=== PATIENT | male | born 1985 | race American Indian/Alaskan Native ===

== ENCOUNTER 2018-05-30 09:26 | Emergency (ER) | payer SELFPAY ==
[2018-05-30 09:32] VITALS: BP 130/76
[2018-05-30] MEDS ORDERED: MOTRIN PO ONE (09:43)
[2018-05-30] MEDS ORDERED: NORCO 5/325 PO ONE (09:43)
--- NOTE | 2018-05-30 09:59 | Emergency Department Report ---
ED Lower Extremity HPI - General Chief Complaint: Extremity Injury, Lower Stated Complaint: LEFT ANKLE PAIN Time Seen by Provider: 05/30/18 09:39 Source: patient Mode of arrival: Wheelchair Limitations: No Limitations - History of Present Illness Initial Comments: 32-year-old male with left ankle injury after stepping in a hole. Patient with pain and swelling on left side unable bear weight. Complaint: ankle injury -: This morning Injury: Ankle: Left Type of Injury: unknown Severity: moderate Improves With: immobilization Worsens With: weight bearing, movement, palpation Context: fall Associated Symptoms: swelling, unable to bear weight. denies: numbness, tingling - Related Data Previous Rx's Medication Instructions Recorded Last Taken Type Cyclobenzaprine HCl [FLEXERIL] 10 mg PO TID PRN #15 tablet 06/26/13 Unknown Rx Hydrocodone Bit/Acetaminophen 1 - 2 each PO Q4-6H PRN #20 tablet 06/26/13 Unknown Rx [Lortab 5-500 Tablet] Ibuprofen [Motrin 800 MG tab] 800 mg PO TID PRN #20 tablet 06/26/13 Unknown Rx HYDROcodone/APAP 5-325 [[place] 1 each PO Q6HR PRN #10 tablet 05/30/18 Unknown Rx 5/325] Ibuprofen 800 mg PO Q6HR PRN #30 tablet 05/30/18 Unknown Rx Allergies Allergy/AdvReac Type Severity Reaction Status Date / Time No Known Allergies Allergy Unverified 06/26/13 05:02 ED Review of Systems ROS: Stated complaint: LEFT ANKLE PAIN Other details as noted in HPI Comment: All other systems reviewed and negative Musculoskeletal: as per HPI, joint swelling, arthralgia Neurological: denies: numbness, paresthesias ED Past Medical Hx - Past Medical History Previous Medical History?: No - Surgical History Past Surgical History?: No - Social History Smoking Status: Current Every Day Smoker Substance Use Type: None - Medications Home Medications: Home Medications Medication Instructions Recorded Confirmed Last Taken Type Cyclobenzaprine HCl [FLEXERIL] 10 mg PO TID PRN #15 tablet 06/26/13 Unknown Rx Hydrocodone Bit/Acetaminophen 1 - 2 each PO Q4-6H PRN #20 tablet 06/26/13 Unknown Rx [Lortab 5-500 Tablet] Ibuprofen [Motrin 800 MG tab] 800 mg PO TID PRN #20 tablet 06/26/13 Unknown Rx HYDROcodone/APAP 5-325 [[place] 1 each PO Q6HR PRN #10 tablet 05/30/18 Unknown Rx 5/325] Ibuprofen 800 mg PO Q6HR PRN #30 tablet 05/30/18 Unknown Rx ED Physical Exam - General Limitations: No Limitations General appearance: alert, in no apparent distress - Head Head exam: Present: atraumatic, normocephalic - Eye Eye exam: Present: normal appearance - ENT ENT exam: Present: mucous membranes moist - Neck Neck exam: Present: normal inspection - Respiratory Respiratory exam: Present: normal lung sounds bilaterally. Absent: respiratory distress - Cardiovascular Cardiovascular Exam: Present: normal rhythm, tachycardia - Extremities Exam Extremities exam: Present: other (swelling to left ankle, worse on lateral aspect; tenderness to left ankle, worse laterally; painful ROM; able to move toes; 2+ DP pulse present; cap refill nml; sensation intact) - Neurological Exam Neurological exam: Present: alert, oriented X3. Absent: motor sensory deficit - Skin Skin exam: Present: warm, dry, intact, normal color ED Course Vital Signs 05/30/18 05/30/18 05/30/18 09:29 09:52 10:52 Temperature 98.6 F Pulse Rate 105 H Respiratory 18 17 18 Rate Blood Pressure 130/76 O2 Sat by Pulse 100 Oximetry ED Lower Extremity MDM - Radiology Data Radiology results: report reviewed, image reviewed LEFT ANKLE, 3 views: History: Injury, pain. Severe soft tissue swelling and large joint effusion is identified. A subtle nondisplaced fracture is identified in the distal tip of the fibula approximately 1 cm distal to the ankle joint. There is also a nondisplaced chip fracture involving the postero-lateral corner of the talar dome. This is only identified on the oblique image. The distal tibia is intact. IMPRESSION: Distal fibular fracture. Talar dome fracture. Severe soft tissue swelling and large joint effusion. Transcribed By: TTR Dictated By: RICARDO MARIE JR, MD Electronically Authenticated By: RICARDO MARIE JR, MD Signed Date/Time: 05/30/18 1029 - Medical Decision Making 37-year-old male status post left ankle injury after stepping in a hole. Patient has sustained left distal fibular and dome of talus fractures. Splint placed. Advised to follow up with orthopedic surgeon. Prescription for pain meds given. - Differential Diagnosis fracture, sprain Critical care attestation.: If time is entered above; I have spent that time in minutes in the direct care of this critically ill patient, excluding procedure time. ED Disposition Clinical Impression: Fracture of fibula, distal, left, closed, Fracture of talus of left ankle, closed Disposition: TO HOME OR SELFCARE Is pt being admited?: No Condition: Stable Instructions: Ankle Fracture (ED) Prescriptions: HYDROcodone/APAP 5-325 [[place] 5/325] 1 each PO Q6HR PRN #10 tablet PRN Reason: Pain Ibuprofen 800 mg PO Q6HR PRN #30 tablet PRN Reason: pain Referrals: ANASTASIA MUKHERJEE MD [Staff Physician] - 3-5 Days Time of Disposition: 10:48
--- NOTE | 2018-05-30 10:30 | XRay Report ---
LEFT ANKLE, 3 views: History: Injury, pain. Severe soft tissue swelling and large joint effusion is identified. A subtle nondisplaced fracture is identified in the distal tip of the fibula approximately 1 cm distal to the ankle joint. There is also a nondisplaced chip fracture involving the postero-lateral corner of the talar dome. This is only identified on the oblique image. The distal tibia is intact. IMPRESSION: Distal fibular fracture. Talar dome fracture. Severe soft tissue swelling and large joint effusion.
== END 2018-05-30 12:18 | disposition home or self-care (01) ==
LOC: ED 09:26
DX: S92.145A Nondisplaced dome fracture of left talus, initial encounter for closed fracture (principal); S82.402A Unspecified fracture of shaft of left fibula, initial encounter for closed fracture; F17.200 Nicotine dependence, unspecified, uncomplicated; W18.42XA Slipping, tripping and stumbling without falling due to stepping into hole or opening, initial encounter; Y93.89 Activity, other specified; Y92.89 Other specified places as the place of occurrence of the external cause; Y99.8 Other external cause status

== ENCOUNTER 2018-09-24 13:29 | Inpatient (IN) | payer OTHER, SELFPAY ==
[2018-09-24] MEDS ORDERED: NACL 0.9% 1000 ML IV ONE (13:35)
--- NOTE | 2018-09-24 13:35 | Emergency Department Report ---
Blank Doc - Documentation Documentation: This is a 32-year-old male that presents with cough, fever, and chills. Exam: vital signs abnormal with tachy, febrile, and hypotension This initial assessment diagnostic orders/clinical plan/treatment(s) is/are subject to change based on patient's health status, clinical progression and re- assessment by fellow clinical providers in the ED. Further treatment and workup at subsequent clinical providers discretion. Patient/guardians urged not to elope from ED s their condition may be serious if not clinically assessed and managed. Initial orders include: 1-Patient sent to [facility] for further evaluation and treatment 2- code sepsis called 3- landscape gardener notified for patient to be brought back to the ED BARRETT.
[2018-09-24] MEDS ORDERED: TESSALON PERLES PO ONE (13:57)
[2018-09-24 14:03] LABS: Basophils % (Auto) 0.3 % (0.0-1.8); Eosinophils # (Auto) 0.2 K/mm3 (0.0-0.4); Eosinophils % (Auto) 1.1 % (0.0-4.3); Hematocrit 46.3 % (35.5-45.6); Hemoglobin 15.9 gm/dl (11.8-15.2); Lymphocytes # (Auto) 1.7 K/mm3 (1.2-5.4); Lymphocytes % (Auto) 10.8 % (13.4-35.0); Mean Corpuscular HGB Conc 34 % (32-34); Mean Corpuscular Volume 90 fl (84-94); Monocytes # (Auto) 2.1 K/mm3 (0.0-0.8); Monocytes % (Auto) 13.4 % (0.0-7.3); Platelet Count 211 K/mm3 (140-440); Red Blood Count 5.16 M/mm3 (3.65-5.03); Red Cell Distribution Width 13.3 % (13.2-15.2)
[2018-09-24] MEDS ORDERED: TYLENOL PO ONE (14:23)
--- NOTE | 2018-09-24 14:29 | Emergency Department Report ---
HPI - General Chief Complaint: Upper Respiratory Infection Time Seen by Provider: 09/24/18 13:34 - HPI HPI: Room 6 The patient is a 32-year-old male presenting with a chief complaint of shortness of breath and cough. The patient states he's had shortness of breath for the past 3 days. The patient states he's had a cough productive of brown sputum. P atient admits to rhinorrhea. Patient is to nausea vomiting and diarrhea. Complains of chest pain only when he coughs Location: Lungs, chest, see above Duration: 3 days Quality: Soreness Severity: Moderate Modifying factors: [see above] Context: [see above] Mode of transportation: [not driving] ED Past Medical Hx - Past Medical History Previous Medical History?: No - Surgical History Past Surgical History?: No - Family History Family history: no significant - Social History Smoking Status: Unknown if ever smoked Substance Use Type: None (denies illicit drug use) - Medications Home Medications: Home Medications Medication Instructions Recorded Confirmed Last Taken Type Cyclobenzaprine HCl [FLEXERIL] 10 mg PO TID PRN #15 tablet 06/26/13 Unknown Rx Hydrocodone Bit/Acetaminophen 1 - 2 each PO Q4-6H PRN #20 tablet 06/26/13 Unknown Rx [Lortab 5-500 Tablet] Ibuprofen [Motrin 800 MG tab] 800 mg PO TID PRN #20 tablet 06/26/13 Unknown Rx HYDROcodone/APAP 5-325 [[place] 1 each PO Q6HR PRN #10 tablet 05/30/18 Unknown Rx 5/325] Ibuprofen 800 mg PO Q6HR PRN #30 tablet 05/30/18 Unknown Rx ED Review of Systems ROS: Stated complaint: CHEST PAIN Other details as noted in HPI Constitutional: no symptoms reported Eyes: denies: eye pain ENT: other (rhinorrhea) Respiratory: cough, shortness of breath Cardiovascular: chest pain Endocrine: no symptoms reported Gastrointestinal: nausea, vomiting, diarrhea Musculoskeletal: myalgia Neurological: denies: headache Physical Exam - Physical Exam Vital Signs: Vital Signs 09/24/18 09/24/18 09/24/18 13:32 13:36 13:57 Temperature 100.1 F H 100.1 F H 99.9 F H Pulse Rate 121 H 121 H 94 H Respiratory 16 18 25 H Rate Blood Pressure 67/29 Blood Pressure 67/29 147/93 [Right] O2 Sat by Pulse 98 98 98 Oximetry 09/24/18 14:00 Temperature Pulse Rate Respiratory 25 H Rate Blood Pressure Blood Pressure [Right] O2 Sat by Pulse 98 Oximetry Physical Exam: GENERAL: The patient is well-developed well-nourished male lying on stretcher appearing fatigued exhibiting occasional cough. [] HEENT: Normocephalic. Atraumatic. Extraocular motions are intact. NECK: Supple. Trachea midline CHEST/LUNGS: Clear to auscultation. There is no respiratory distress noted. HEART/CARDIOVASCULAR: Regular. There is no tachycardia. There is no gallop rub or murmur. ABDOMEN: Abdomen is soft, nontender. Patient has normal bowel sounds. There is no abdominal distention. SKIN: There is no rash. There is no edema. There is no diaphoresis. NEURO: The patient is awake, alert, and oriented. The patient is cooperative. The patient has normal speech MUSCULOSKELETAL: There is no evidence of acute injury. ED Course Vital Signs 09/24/18 09/24/18 09/24/18 13:32 13:36 13:57 Temperature 100.1 F H 100.1 F H 99.9 F H Pulse Rate 121 H 121 H 94 H Respiratory 16 18 25 H Rate Blood Pressure 67/29 Blood Pressure 67/29 147/93 [Right] O2 Sat by Pulse 98 98 98 Oximetry 09/24/18 14:00 Temperature Pulse Rate Respiratory 25 H Rate Blood Pressure Blood Pressure [Right] O2 Sat by Pulse 98 Oximetry ED Medical Decision Making - Lab Data Result diagrams: 09/24/18 13:53 09/24/18 13:53 - Radiology Data Radiology results: image reviewed (chest x-ray, CT chest) interpreted by me: Chest x-ray-no focal infiltrates, no pneumothorax CT chest (read by myself)-bilateral pneumonia - Differential Diagnosis pneumonia, influenza, sepsis Critical care attestation.: If time is entered above; I have spent that time in minutes in the direct care of this critically ill patient, excluding procedure time. ED Disposition Clinical Impression: Pneumonia, Sepsis, Shortness of breath Disposition: OP ADMIT IP TO THIS HOSP Is pt being admited?: Yes Does the pt Need Aspirin: Yes Condition: Fair Instructions: Bacterial Pneumonia (ED) Time of Disposition: 15:22 (hospitalist paged (Dr Jacobs))
[2018-09-24 14:31] LABS: INR 1.11 (0.87-1.13)
[2018-09-24 14:32] LABS: Partial Thromboplastin Time 29.1 Sec. (24.2-36.6)
[2018-09-24] MEDS: ZITHROMAX 500 MG in NACL 0.9% 250ML 250 ML IV SCH (14:44)
[2018-09-24 14:46] LABS: BUN/Creatinine Ratio 8; Blood Urea Nitrogen 8 mg/dL (9-20); Calcium 8.9 mg/dL (8.4-10.2); Hemolysis Index 173
--- NOTE | 2018-09-24 14:49 | XRay Report ---
FINAL REPORT EXAM: XR CHEST 1V AP HISTORY: sepsis TECHNIQUE: Chest, portable upright PRIORS: None. FINDINGS: The heart size is normal. Mediastinal contours are normal. Pulmonary vasculature is not congested. The lungs are clear. There are no pleural effusion seen. There is no evidence of pneumothorax. IMPRESSION: There is no acute abnormality identified.
[2018-09-24 14:56] LABS: Alanine Aminotransferase 23 units/L (7-56)
[2018-09-24 15:43] LABS: Bilirubin,Urine NEG (Negative); Blood,Urine NEG (Negative); Color,Urine Straw (Yellow); Protein,Urine <15 mg/dL mg/dL (Negative); Urobilinogen,Urine < 2.0 mg/dL (<2.0)
--- NOTE | 2018-09-24 16:12 | Cat Scan Report ---
FINAL REPORT EXAM: CT ANGIO CHEST HISTORY: shortness of breath, productive cough TECHNIQUE: Following IV administration of 100 cc of Omnipaque 350 axial helical imaging was performe d through the chest with sagittal and coronal reformatted images and maximum intensity projection genevieve ges obtained. Comparison: Chest x-ray also performed today FINDINGS: There are areas of pulmonary consolidation in the lower lobes bilaterally most consistent with the ap pearance of pulmonary infiltrate/pneumonia. There is no evidence of pneumothorax or pleural fluid collection. The trachea and bronchi are patent. There are mildly prominent mediastinal lymph nodes that are nonspecific in appearance but are most li cody inflammatory in nature. The thoracic aorta is normal in appearance. The heart is normal size. The visualized portion the upper abdomen is unremarkable. The bony structures are unremarkable IMPRESSION: 1. Bilateral lower lobe pulmonary infiltrates most consistent with pneumonia. Follow-up to resolution is recommended. 2. No evidence of pulmonary artery emboli.
[2018-09-24] MEDS: ROCEPHIN/NS 2 GM/100 ML 2 GM/100 ML BAG IV SCH (16:24)
--- NOTE | 2018-09-24 18:21 | History and Physical Report ---
History of Present Illness Date of examination: 09/24/18 Date of admission: 09/24/18 Chief complaint: Cough and fever 2 days History of present illness: 32-year-old male presenting with a chief complaint of shortness of breath and cough. Had shortness of breath for the past 3 days. The patient states he's had a cough productive of brown sputum. Patient admits to rhinorrhea. Patient has no nausea vomiting and diarrhea. Complains of chest pain only when he cou ghs. Past Medical History Previous Medical History?: No Surgical History Past Surgical History?: No Family History Family history: no significant Social History Smoking Status: Unknown if ever smoked Substance Use Type: None (denies illicit drug use) Medications Home Medications: Home Medications Medication Instructions Recorded Confirmed Last Taken Type Cyclobenzaprine HCl [FLEXERIL] 10 mg PO TID PRN #15 tablet 06/26/13 Unknown Rx Hydrocodone Bit/Acetaminophen 1 - 2 each PO Q4-6H PRN #20 tablet 06/26/13 Unknown Rx [Lortab 5-500 Tablet] Ibuprofen [Motrin 800 MG tab] 800 mg PO TID PRN #20 tablet 06/26/13 Unknown Rx HYDROcodone/APAP 5-325 [[place] 1 each PO Q6HR PRN #10 tablet 05/30/18 Unknown Rx 5/325] Ibuprofen 800 mg PO Q6HR PRN #30 tablet 05/30/18 Unknown Rx Review of Systems ROS: Stated complaint: CHEST PAIN Other details as noted in HPI Constitutional: no symptoms reported Eyes: denies: eye pain ENT: other (rhinorrhea) Respiratory: cough, shortness of breath Cardiovascular: chest pain Endocrine: no symptoms reported Gastrointestinal: nausea, vomiting, diarrhea Musculoskeletal: myalgia Neurological: denies: headache Medications and Allergies Allergies Allergy/AdvReac Type Severity Reaction Status Date / Time No Known Allergies Allergy Unverified 06/26/13 05:02 Home Medications Medication Instructions Recorded Confirmed Last Taken Type No Known Home Medications [No 09/24/18 09/24/18 Unknown History Reported Home Medications] Active Meds: Active Medications Azithromycin 500 mg/ Sodium (Chloride) 250 mls @ 250 mls/hr IV Q24HR YELENA; Protocol Last Admin: 09/24/18 14:44 Dose: 250 mls/hr Documented by: Ceftriaxone Sodium (Rocephin/Ns 2 Gm/100 Ml) 2 gm in 100 mls @ 200 mls/hr IV Q24HR YELENA; Protocol Last Admin: 09/24/18 16:24 Dose: 200 mls/hr Documented by: Exam - Constitutional Vitals: Temp Pulse Resp BP Pulse Ox 99.9 F H 105 H 20 135/68 97 09/24/18 13:57 09/24/18 15:34 09/24/18 15:34 09/24/18 15:34 09/24/18 15:34 General appearance: Present: mild distress, well-nourished - EENT Eyes: Present: PERRL ENT: hearing intact, clear oral mucosa - Neck Neck: Present: supple, normal ROM - Respiratory Respiratory effort: normal Respiratory: bilateral: CTA, rhonchi (Scattered) - Cardiovascular Heart rate: 88 Rhythm: regular Heart Sounds: Present: S1 & S2. Absent: rub, click - Extremities Extremities: no ischemia, pulses intact, pulses symmetrical, No edema Peripheral Pulses: within normal limits - Abdominal General gastrointestinal: Present: soft, non-tender, non-distended, normal bowel sounds Male genitourinary: Present: normal - Rectal Rectal Exam: deferred - Integumentary Integumentary: Present: clear, warm, dry - Musculoskeletal Musculoskeletal: gait normal, strength equal bilaterally - Psychiatric Psychiatric: appropriate mood/affect, intact judgment & insight - Neurologic Neurologic: CNII-XII intact, moves all extremities - Allied Health Allied health notes reviewed: nursing, case management Results - Labs CBC & Chem 7: 09/24/18 13:53 09/24/18 13:53 Labs: Laboratory Last Values WBC 15.7 K/mm3 (4.5-11.0) H 09/24/18 13:53 RBC 5.16 M/mm3 (3.65-5.03) H 09/24/18 13:53 Hgb 15.9 gm/dl (11.8-15.2) H 09/24/18 13:53 Hct 46.3 % (35.5-45.6) H 09/24/18 13:53 MCV 90 fl (84-94) 09/24/18 13:53 MCH 31 pg (28-32) 09/24/18 13:53 MCHC 34 % (32-34) 09/24/18 13:53 RDW 13.3 % (13.2-15.2) 09/24/18 13:53 Plt Count 211 K/mm3 (140-440) 09/24/18 13:53 Lymph % (Auto) 10.8 % (13.4-35.0) L 09/24/18 13:53 [place] % (Auto) 13.4 % (0.0-7.3) H 09/24/18 13:53 Eos % (Auto) 1.1 % (0.0-4.3) 09/24/18 13:53 Baso % (Auto) 0.3 % (0.0-1.8) 09/24/18 13:53 Lymph # 1.7 K/mm3 (1.2-5.4) 09/24/18 13:53 [place] # 2.1 K/mm3 (0.0-0.8) H 09/24/18 13:53 Eos # 0.2 K/mm3 (0.0-0.4) 09/24/18 13:53 Baso # 0.0 K/mm3 (0.0-0.1) 09/24/18 13:53 Seg Neutrophils % 74.4 % (40.0-70.0) H 09/24/18 13:53 Seg Neutrophils # 11.7 K/mm3 (1.8-7.7) H 09/24/18 13:53 PT 15.0 Sec. (12.2-14.9) H 09/24/18 14:03 INR 1.11 (0.87-1.13) 09/24/18 14:03 APTT 29.1 Sec. (24.2-36.6) 09/24/18 14:03 Sodium 129 mmol/L (137-145) L 09/24/18 13:53 Potassium 4.6 mmol/L (3.6-5.0) 09/24/18 13:53 Chloride 92.2 mmol/L (98-107) L 09/24/18 13:53 Carbon Dioxide 20 mmol/L (22-30) L 09/24/18 13:53 Anion Gap 21 mmol/L 09/24/18 13:53 BUN 8 mg/dL (9-20) L 09/24/18 13:53 Creatinine 1.0 mg/dL (0.8-1.5) 09/24/18 13:53 Estimated GFR > 60 ml/min 09/24/18 13:53 BUN/Creatinine Ratio 8 % 09/24/18 13:53 Glucose 116 mg/dL (75-100) H 09/24/18 13:53 Lactic Acid 0.80 mmol/L (0.7-2.0) 09/24/18 16:08 Calcium 8.9 mg/dL (8.4-10.2) 09/24/18 13:53 Total Bilirubin 0.40 mg/dL (0.1-1.2) 09/24/18 13:53 AST 35 units/L (5-40) 09/24/18 13:53 ALT 23 units/L (7-56) 09/24/18 13:53 Alkaline Phosphatase 73 units/L (35-129) 09/24/18 13:53 Total Protein 8.4 g/dL (6.3-8.2) H 09/24/18 13:53 Albumin 4.0 g/dL (3.9-5) 09/24/18 13:53 Albumin/Globulin Ratio 0.9 % 09/24/18 13:53 Urine Color Straw (Yellow) 09/24/18 15:00 Urine Turbidity Clear (Clear) 09/24/18 15:00 Urine pH 6.0 (5.0-7.0) 09/24/18 15:00 Ur Specific [place] 1.003 (1.003-1.030) 09/24/18 15:00 Urine Protein <15 mg/dl mg/dL (Negative) 09/24/18 15:00 Urine Glucose (UA) Neg mg/dL (Negative) 09/24/18 15:00 Urine Ketones Tr mg/dL (Negative) 09/24/18 15:00 Urine Blood Neg (Negative) 09/24/18 15:00 Urine Nitrite Neg (Negative) 09/24/18 15:00 Urine Bilirubin Neg (Negative) 09/24/18 15:00 Urine Urobilinogen < 2.0 mg/dL (<2.0) 09/24/18 15:00 Ur Leukocyte Esterase Neg (Negative) 09/24/18 15:00 Urine WBC (Auto) 2.0 /HPF (0.0-6.0) 09/24/18 15:00 Urine RBC (Auto) 1.0 /HPF (0.0-6.0) 09/24/18 15:00 U Epithel Cells (Auto) < 1.0 /HPF (0-13.0) 09/24/18 15:00 Influenza A (Rapid) Negative (Negative) 09/24/18 15:31 Influenza B (Rapid) Negative (Negative) 09/24/18 15:31 Group A Strep Rapid Negative (Negative) 09/24/18 15:31 - Imaging and Cardiology EKG: report reviewed Imaging and Cardiology: CXR IMPRESSION: There is no acute abnormality identified. CTA Chest IMPRESSION: 1. Bilateral lower lobe pulmonary infiltrates most consistent with pneumonia. Follow-up to resolution is recommended. 2. No evidence of pulmonary artery emboli. Assessment and Plan Advance Directives: Yes (Full code) VTE prophylaxis?: Chemical Plan of care discussed with patient/family: Yes - Patient Problems (1) SIRS (systemic inflammatory response syndrome) Current Visit: Yes Status: Acute Plan to address problem: Clinical picture c/w SIRS (2) Bilateral pneumonia Current Visit: Yes Status: Acute Qualifiers: Lung location: lower lobe of lung Plan to address problem: Patient initiated on IV ceftriaxone and IV Zithromax Neb tx prn (3) Hyponatremia Current Visit: Yes Status: Acute Plan to address problem: Check osmolarity IV NS for now (4) DVT prophylaxis Current Visit: Yes Status: Acute Plan to address problem: On Lovenox and gi prophylaxis
[2018-09-24] MEDS ORDERED: ZOFRAN IV PRN (18:26)
[2018-09-24] MEDS ORDERED: TYLENOL PO PRN (18:26)
[2018-09-24] MEDS ORDERED: SODIUM CHLORIDE FLUSH SYRINGE 10 ML IV PRN (18:26)
[2018-09-24] MEDS ORDERED: FLEXERIL PO PRN (18:26)
[2018-09-24] MEDS ORDERED: PROVENTIL IH PRN (18:29)
[2018-09-24] MEDS ORDERED: ROCEPHIN/NS 2 GM/100 ML 2 GM/100 ML BAG IV SCH (19:00)
[2018-09-24] MEDS ORDERED: D5NS 1,000 ML IV ONE (19:22)
[2018-09-24] MEDS ORDERED: LOVENOX SUB-Q ONE (19:23)
[2018-09-24] MEDS: LOVENOX SUB-Q SCH (19:31)
[2018-09-24] MEDS: D5NS 1,000 ML IV SCH (19:31)
[2018-09-24] MEDS ORDERED: DILAUDID ONE (20:01)
[2018-09-24] MEDS: DILAUDID IV PRN (20:02)
[2018-09-24] MEDS ORDERED: PEPCID IV ONE (21:43)
[2018-09-24] MEDS: SODIUM CHLORIDE FLUSH SYRINGE 10 ML IV SCH (21:45)
[2018-09-24] MEDS: PEPCID IV SCH (21:45)
[2018-09-25] MEDS: D5NS 1,000 ML IV SCH ×2 (05:08→17:25)
[2018-09-25] MEDS: DILAUDID IV PRN ×3 (06:36→21:35)
[2018-09-25 07:11] LABS: Basophils % (Auto) 0.4 % (0.0-1.8); Eosinophils # (Auto) 0.2 K/mm3 (0.0-0.4); Eosinophils % (Auto) 1.4 % (0.0-4.3); Hematocrit 38.1 % (35.5-45.6); Hemoglobin 13.2 gm/dl (11.8-15.2); Lymphocytes # (Auto) 1.2 K/mm3 (1.2-5.4); Lymphocytes % (Auto) 10.7 % (13.4-35.0); Mean Corpuscular HGB Conc 35 % (32-34); Mean Corpuscular Volume 89 fl (84-94); Monocytes # (Auto) 1.4 K/mm3 (0.0-0.8); Monocytes % (Auto) 12.7 % (0.0-7.3); Platelet Count 207 K/mm3 (140-440); Red Blood Count 4.28 M/mm3 (3.65-5.03); Red Cell Distribution Width 13.2 % (13.2-15.2)
[2018-09-25 07:30] LABS: Alanine Aminotransferase 22 units/L (7-56); Albumin 3.5 g/dL (3.9-5); BUN/Creatinine Ratio 5; Blood Urea Nitrogen 4 mg/dL (9-20); Calcium 8.2 mg/dL (8.4-10.2); Hemolysis Index 2
[2018-09-25] MEDS: ZITHROMAX 500 MG in NACL 0.9% 250ML 250 ML IV SCH (11:29)
[2018-09-25] MEDS: ROCEPHIN/NS 2 GM/100 ML 2 GM/100 ML BAG IV SCH (11:29)
[2018-09-25] MEDS: SODIUM CHLORIDE FLUSH SYRINGE 10 ML IV SCH ×2 (11:30→21:35)
[2018-09-25] MEDS: PEPCID IV SCH ×2 (11:30→21:36)
[2018-09-25] MEDS: LOVENOX SUB-Q SCH (11:30)
[2018-09-25] MEDS ORDERED: PNEUMOVAX 23 IM ONE (12:00)
--- NOTE | 2018-09-25 16:04 | Progress Note ---
Assessment and Plan 32-year-old male presenting with a chief complaint of shortness of breath and cough. Had shortness of breath for the past 3 days. The patient states he's had a cough productive of brown sputum. Fever nd chilss. Patient admits to rhinorrhea. Patient has no nausea vomiting and diarrhea. Complains of pleuritic chest pain. CXR consistent with riri lobe infiltrate. - Bilateral pneumonia Follow up with blood culture Continue with iv antibiotic - Sepsis with fever rachycardia and tachypnea Continu with iv antibiot F/u with Cx result Marlon wbc - Hypokalemia Supplement Check Mg level - Hyponatremia - imporving trend - DVT PPX with Lovenox and GI with pepcid Dispositon: D/c home when clinically stable Time spent: > 35 mins Subjective Date of service: 09/25/18 Principal diagnosis: riri pnemonia, Hyponatremia Interval history: Still coughing, productive of sputum. Associated with pleuritic Chest pain. Objective - Exam Narrative Exam: Constitutional: Well-nourished well-developed. In no distress Head: Normocephalic atraumatic Eyes: Pupils are equal round and reactive to light Nose: No enlarged turbinates, no septal deviation. Mouth: Moist mucous membranes. Neck: Supple no thyromegaly. No bruit. No JVD Heart: Regular rate and rhythm, S1-S2 normal. No rubs murmurs or gallop Lungs: Rhonchi on the lungs Abdomen: Soft, nontender. Bowel sound are present. Extremities: No edema, no cyanosis, no clubbing. Neuro: Alert oriented Oriented x3. No focal sensory or motor deficit. Skin: No rashes or hyperpigmented spots Musculoskeletal system: No joint pain or swelling Hematological: No petechia or subcutanous hemorrhages. Immunological: No multiple septic spots on the skin Lymphatic: No generalized lymphadenopathy Psychiatry: Euthymic. Calm. - Constitutional Vitals: Vital Signs - 12hr 09/25/18 09/25/18 06:05 11:13 Temperature 99.6 F 100.5 F H Pulse Rate 94 H 86 Respiratory 20 20 Rate Blood Pressure 127/86 114/77 O2 Sat by Pulse 95 96 Oximetry - Labs CBC & Chem 7: 09/25/18 06:21 09/25/18 06:21 Labs: Abnormal lab results 09/25/18 09/25/18 Range/Units 06:21 06:21 MCHC 35 H (32-34) % Lymph % (Auto) 10.7 L (13.4-35.0) % [place] % (Auto) 12.7 H (0.0-7.3) % [place] # 1.4 H (0.0-0.8) K/mm3 Seg Neutrophils % 74.8 H (40.0-70.0) % Seg Neutrophils # 8.1 H (1.8-7.7) K/mm3 Sodium 136 L D (137-145) mmol/L Potassium 3.3 L D (3.6-5.0) mmol/L BUN 4 L (9-20) mg/dL Glucose 139 H (75-100) mg/dL Calcium 8.2 L (8.4-10.2) mg/dL Albumin 3.5 L (3.9-5) g/dL
[2018-09-26] MEDS: D5NS 1,000 ML IV SCH ×2 (02:58→14:00)
[2018-09-26] MEDS: PEPCID IV SCH (09:19)
[2018-09-26] MEDS: LOVENOX SUB-Q SCH (09:19)
[2018-09-26] MEDS: ROCEPHIN/NS 2 GM/100 ML 2 GM/100 ML BAG IV SCH (09:19)
[2018-09-26] MEDS: SODIUM CHLORIDE FLUSH SYRINGE 10 ML IV SCH ×2 (09:19→22:11)
[2018-09-26] MEDS: ZITHROMAX PO SCH (09:20)
[2018-09-26 12:03] LABS: BUN/Creatinine Ratio 5; Blood Urea Nitrogen 4 mg/dL (9-20); Calcium 8.6 mg/dL (8.4-10.2); Hemolysis Index 0
[2018-09-26] MEDS: K-DUR PO SCH (14:00)
[2018-09-26] MEDS: DUONEB *Not for PRN Use IH SCH ×2 (17:14→20:57)
[2018-09-26] MEDS: NORCO 5/325 PO PRN (17:15)
--- NOTE | 2018-09-26 17:18 | Progress Note ---
Assessment and Plan Assessment and plan: Sepsis 2/2 Bilateral pneumonia -Continue IV antibiotics -Blood cultures negative so far -Sputum culture pending Hypokalemia -improving on repletion, will monitor Hyponatremia -Improved, will monitor Hyperglycemia -We will check hemoglobin A1c level DVT PPX with Lovenox and GI with pepcid Disposition: For discharge when medically stable History Interval history: Patient complaining of cough Hospitalist Physical - Constitutional Vitals: Temp Pulse Resp BP Pulse Ox 101.9 F H 84 20 142/81 97 09/26/18 16:57 09/26/18 16:57 09/26/18 16:57 09/26/18 16:57 09/26/18 16:57 General appearance: Present: no acute distress, well-nourished - EENT Eyes: Present: PERRL, EOM intact ENT: hearing intact, clear oral mucosa - Neck Neck: Present: supple - Respiratory Respiratory effort: normal Respiratory: bilateral: diminished, rales - Cardiovascular Rhythm: regular Heart Sounds: Present: S1 & S2 - Extremities Extremities: No edema - Abdominal General gastrointestinal: soft, non-tender, non-distended, normal bowel sounds - Neurologic Neurologic: CNII-XII intact Results - Labs CBC & Chem 7: 09/25/18 06:21 09/26/18 11:22 Labs: Laboratory Last Values WBC 10.8 K/mm3 (4.5-11.0) 09/25/18 06:21 RBC 4.28 M/mm3 (3.65-5.03) 09/25/18 06:21 Hgb 13.2 gm/dl (11.8-15.2) 09/25/18 06:21 Hct 38.1 % (35.5-45.6) D 09/25/18 06:21 MCV 89 fl (84-94) 09/25/18 06:21 MCH 31 pg (28-32) 09/25/18 06:21 MCHC 35 % (32-34) H 09/25/18 06:21 RDW 13.2 % (13.2-15.2) 09/25/18 06:21 Plt Count 207 K/mm3 (140-440) 09/25/18 06:21 Lymph % (Auto) 10.7 % (13.4-35.0) L 09/25/18 06:21 [place] % (Auto) 12.7 % (0.0-7.3) H 09/25/18 06:21 Eos % (Auto) 1.4 % (0.0-4.3) 09/25/18 06:21 Baso % (Auto) 0.4 % (0.0-1.8) 09/25/18 06:21 Lymph # 1.2 K/mm3 (1.2-5.4) 09/25/18 06:21 [place] # 1.4 K/mm3 (0.0-0.8) H 09/25/18 06:21 Eos # 0.2 K/mm3 (0.0-0.4) 09/25/18 06:21 Baso # 0.0 K/mm3 (0.0-0.1) 09/25/18 06:21 Seg Neutrophils % 74.8 % (40.0-70.0) H 09/25/18 06:21 Seg Neutrophils # 8.1 K/mm3 (1.8-7.7) H 09/25/18 06:21 PT 15.0 Sec. (12.2-14.9) H 09/24/18 14:03 INR 1.11 (0.87-1.13) 09/24/18 14:03 APTT 29.1 Sec. (24.2-36.6) 09/24/18 14:03 Sodium 136 mmol/L (137-145) L 09/26/18 11:22 Potassium 3.4 mmol/L (3.6-5.0) L 09/26/18 11:22 Chloride 97.5 mmol/L (98-107) L 09/26/18 11:22 Carbon Dioxide 26 mmol/L (22-30) 09/26/18 11:22 Anion Gap 16 mmol/L 09/26/18 11:22 BUN 4 mg/dL (9-20) L 09/26/18 11:22 Creatinine 0.8 mg/dL (0.8-1.5) 09/26/18 11:22 Estimated GFR > 60 ml/min 09/26/18 11:22 BUN/Creatinine Ratio 5 % 09/26/18 11:22 Glucose 116 mg/dL (75-100) H 09/26/18 11:22 Hemoglobin A1c 5.4 % (4-6) 09/26/18 11:22 Osmolality 276 Mosm/kg 09/25/18 06:21 Lactic Acid 0.80 mmol/L (0.7-2.0) 09/24/18 16:08 Calcium 8.6 mg/dL (8.4-10.2) 09/26/18 11:22 Magnesium 2.00 mg/dL (1.7-2.3) 09/26/18 11:22 Total Bilirubin 0.30 mg/dL (0.1-1.2) 09/25/18 06:21 AST 30 units/L (5-40) 09/25/18 06:21 ALT 22 units/L (7-56) 09/25/18 06:21 Alkaline Phosphatase 57 units/L (35-129) 09/25/18 06:21 Total Protein 6.7 g/dL (6.3-8.2) D 09/25/18 06:21 Albumin 3.5 g/dL (3.9-5) L 09/25/18 06:21 Albumin/Globulin Ratio 1.1 % 09/25/18 06:21 Urine Color Straw (Yellow) 09/24/18 15:00 Urine Turbidity Clear (Clear) 09/24/18 15:00 Urine pH 6.0 (5.0-7.0) 09/24/18 15:00 Ur Specific [place] 1.003 (1.003-1.030) 09/24/18 15:00 Urine Protein <15 mg/dl mg/dL (Negative) 09/24/18 15:00 Urine Glucose (UA) Neg mg/dL (Negative) 09/24/18 15:00 Urine Ketones Tr mg/dL (Negative) 09/24/18 15:00 Urine Blood Neg (Negative) 09/24/18 15:00 Urine Nitrite Neg (Negative) 09/24/18 15:00 Urine Bilirubin Neg (Negative) 09/24/18 15:00 Urine Urobilinogen < 2.0 mg/dL (<2.0) 09/24/18 15:00 Ur Leukocyte Esterase Neg (Negative) 09/24/18 15:00 Urine WBC (Auto) 2.0 /HPF (0.0-6.0) 09/24/18 15:00 Urine RBC (Auto) 1.0 /HPF (0.0-6.0) 09/24/18 15:00 U Epithel Cells (Auto) < 1.0 /HPF (0-13.0) 09/24/18 15:00 Urine Osmolality 245 Mosm/kg 09/25/18 Unknown Influenza A (Rapid) Negative (Negative) 09/24/18 15:31 Influenza B (Rapid) Negative (Negative) 09/24/18 15:31 Group A Strep Rapid Negative (Negative) 09/24/18 15:31
[2018-09-26] MEDS: MUCINEX ER PO SCH (22:10)
[2018-09-26] MEDS: AMBIEN PO PRN (22:10)
[2018-09-26] MEDS: PEPCID PO SCH (22:10)
[2018-09-27] MEDS: DUONEB *Not for PRN Use IH SCH ×4 (02:01→21:43)
[2018-09-27] MEDS: ROCEPHIN/NS 2 GM/100 ML 2 GM/100 ML BAG IV SCH (09:18)
[2018-09-27] MEDS: K-DUR PO SCH (09:23)
[2018-09-27] MEDS: LOVENOX SUB-Q SCH (09:24)
[2018-09-27] MEDS: MUCINEX ER PO SCH ×2 (09:24→21:39)
[2018-09-27] MEDS: PEPCID PO SCH ×2 (09:24→21:39)
[2018-09-27] MEDS: ZITHROMAX PO SCH (09:24)
[2018-09-27] MEDS: NORCO 5/325 PO PRN (09:33)
[2018-09-27] MEDS: SODIUM CHLORIDE FLUSH SYRINGE 10 ML IV SCH ×2 (10:00→21:40)
[2018-09-27 10:42] LABS: BUN/Creatinine Ratio 3; Blood Urea Nitrogen 3 mg/dL (9-20); Calcium 8.4 mg/dL (8.4-10.2); Hemolysis Index 3
--- NOTE | 2018-09-27 12:51 | Progress Note ---
Assessment and Plan Assessment and plan: Sepsis 2/2 Bilateral pneumonia -Continue IV antibiotics -Blood cultures negative so far -Sputum culture pending -will also check HIV, pt consented Hypokalemia -resolved s/p repletion Hyponatremia -Improved, will monitor Hyperglycemia -hbA1c level:5.4 DVT PPX with Lovenox and GI with pepcid Disposition: For possible discharge in 1-2 days if medically stable History Interval history: Patient reports feeling better today. His cough has improved. Hospitalist Physical - Constitutional Vitals: Temp Pulse Resp BP Pulse Ox 99.1 F 96 H 20 133/79 85 09/27/18 11:47 09/27/18 11:47 09/27/18 11:47 09/27/18 11:47 09/27/18 11:47 General appearance: Present: no acute distress, well-nourished - EENT Eyes: Present: PERRL, EOM intact - Neck Neck: Present: supple - Respiratory Respiratory effort: normal Respiratory: bilateral: rales (but improved) - Cardiovascular Rhythm: regular Heart Sounds: Present: S1 & S2 - Extremities Extremities: No edema - Abdominal General gastrointestinal: soft, non-tender, non-distended, normal bowel sounds - Neurologic Neurologic: CNII-XII intact Results - Labs CBC & Chem 7: 09/25/18 06:21 09/27/18 10:13 Labs: Laboratory Last Values WBC 10.8 K/mm3 (4.5-11.0) 09/25/18 06:21 RBC 4.28 M/mm3 (3.65-5.03) 09/25/18 06:21 Hgb 13.2 gm/dl (11.8-15.2) 09/25/18 06:21 Hct 38.1 % (35.5-45.6) D 09/25/18 06:21 MCV 89 fl (84-94) 09/25/18 06:21 MCH 31 pg (28-32) 09/25/18 06:21 MCHC 35 % (32-34) H 09/25/18 06:21 RDW 13.2 % (13.2-15.2) 09/25/18 06:21 Plt Count 207 K/mm3 (140-440) 09/25/18 06:21 Lymph % (Auto) 10.7 % (13.4-35.0) L 09/25/18 06:21 [place] % (Auto) 12.7 % (0.0-7.3) H 09/25/18 06:21 Eos % (Auto) 1.4 % (0.0-4.3) 09/25/18 06:21 Baso % (Auto) 0.4 % (0.0-1.8) 09/25/18 06:21 Lymph # 1.2 K/mm3 (1.2-5.4) 09/25/18 06:21 [place] # 1.4 K/mm3 (0.0-0.8) H 09/25/18 06:21 Eos # 0.2 K/mm3 (0.0-0.4) 09/25/18 06:21 Baso # 0.0 K/mm3 (0.0-0.1) 09/25/18 06:21 Seg Neutrophils % 74.8 % (40.0-70.0) H 09/25/18 06:21 Seg Neutrophils # 8.1 K/mm3 (1.8-7.7) H 09/25/18 06:21 PT 15.0 Sec. (12.2-14.9) H 09/24/18 14:03 INR 1.11 (0.87-1.13) 09/24/18 14:03 APTT 29.1 Sec. (24.2-36.6) 09/24/18 14:03 Sodium 137 mmol/L (137-145) 09/27/18 10:13 Potassium 4.1 mmol/L (3.6-5.0) D 09/27/18 10:13 Chloride 99.2 mmol/L (98-107) 09/27/18 10:13 Carbon Dioxide 26 mmol/L (22-30) 09/27/18 10:13 Anion Gap 16 mmol/L 09/27/18 10:13 BUN 3 mg/dL (9-20) L 09/27/18 10:13 Creatinine 0.9 mg/dL (0.8-1.5) 09/27/18 10:13 Estimated GFR > 60 ml/min 09/27/18 10:13 BUN/Creatinine Ratio 3 % 09/27/18 10:13 Glucose 115 mg/dL (75-100) H 09/27/18 10:13 Hemoglobin A1c 5.4 % (4-6) 09/26/18 11:22 Osmolality 276 Mosm/kg 09/25/18 06:21 Lactic Acid 0.80 mmol/L (0.7-2.0) 09/24/18 16:08 Calcium 8.4 mg/dL (8.4-10.2) 09/27/18 10:13 Magnesium 2.00 mg/dL (1.7-2.3) 09/26/18 11:22 Total Bilirubin 0.30 mg/dL (0.1-1.2) 09/25/18 06:21 AST 30 units/L (5-40) 09/25/18 06:21 ALT 22 units/L (7-56) 09/25/18 06:21 Alkaline Phosphatase 57 units/L (35-129) 09/25/18 06:21 Total Protein 6.7 g/dL (6.3-8.2) D 09/25/18 06:21 Albumin 3.5 g/dL (3.9-5) L 09/25/18 06:21 Albumin/Globulin Ratio 1.1 % 09/25/18 06:21 Urine Color Straw (Yellow) 09/24/18 15:00 Urine Turbidity Clear (Clear) 09/24/18 15:00 Urine pH 6.0 (5.0-7.0) 09/24/18 15:00 Ur Specific [place] 1.003 (1.003-1.030) 09/24/18 15:00 Urine Protein <15 mg/dl mg/dL (Negative) 09/24/18 15:00 Urine Glucose (UA) Neg mg/dL (Negative) 09/24/18 15:00 Urine Ketones Tr mg/dL (Negative) 09/24/18 15:00 Urine Blood Neg (Negative) 09/24/18 15:00 Urine Nitrite Neg (Negative) 09/24/18 15:00 Urine Bilirubin Neg (Negative) 09/24/18 15:00 Urine Urobilinogen < 2.0 mg/dL (<2.0) 09/24/18 15:00 Ur Leukocyte Esterase Neg (Negative) 09/24/18 15:00 Urine WBC (Auto) 2.0 /HPF (0.0-6.0) 09/24/18 15:00 Urine RBC (Auto) 1.0 /HPF (0.0-6.0) 09/24/18 15:00 U Epithel Cells (Auto) < 1.0 /HPF (0-13.0) 09/24/18 15:00 Urine Osmolality 245 Mosm/kg 09/25/18 Unknown Influenza A (Rapid) Negative (Negative) 09/24/18 15:31 Influenza B (Rapid) Negative (Negative) 09/24/18 15:31 Group A Strep Rapid Negative (Negative) 09/24/18 15:31
[2018-09-27] MEDS: AMBIEN PO PRN (21:44)
[2018-09-28 06:00] LABS: Basophils # (Auto) 0.1 K/mm3 (0.0-0.1); Basophils % (Auto) 0.6 % (0.0-1.8); Eosinophils # (Auto) 0.4 K/mm3 (0.0-0.4); Eosinophils % (Auto) 3.7 % (0.0-4.3); Hematocrit 38.9 % (35.5-45.6); Hemoglobin 13.4 gm/dl (11.8-15.2); Lymphocytes # (Auto) 1.7 K/mm3 (1.2-5.4); Lymphocytes % (Auto) 14.4 % (13.4-35.0); Mean Corpuscular HGB Conc 35 % (32-34); Mean Corpuscular Volume 89 fl (84-94); Monocytes # (Auto) 1.4 K/mm3 (0.0-0.8); Monocytes % (Auto) 11.5 % (0.0-7.3); Platelet Count 301 K/mm3 (140-440); Red Blood Count 4.37 M/mm3 (3.65-5.03); Red Cell Distribution Width 13.3 % (13.2-15.2)
[2018-09-28] MEDS: DUONEB *Not for PRN Use IH SCH ×2 (09:37→13:49)
[2018-09-28] MEDS: ROCEPHIN/NS 2 GM/100 ML 2 GM/100 ML BAG IV SCH (10:59)
[2018-09-28] MEDS: LOVENOX SUB-Q SCH (11:01)
[2018-09-28] MEDS: ZITHROMAX PO SCH (11:02)
[2018-09-28] MEDS: MUCINEX ER PO SCH (11:02)
[2018-09-28] MEDS: PEPCID PO SCH (11:02)
[2018-09-28 13:31] VITALS: BP 122/78
--- NOTE | 2018-09-29 15:39 | Discharge Summary ---
Providers - Providers Date of Admission: 09/24/18 18:26 Date of discharge: 09/28/18 Attending physician: SAADIA AGUILERA Primary care physician: CEDRIC NUNEZ Hospitalization Reason for admission: Sepsis 2/2 Bilateral pneumonia Condition: Fair Hospital course: FINAL DISCHARGE DIAGNOSIS: -Sepsis 2/2 Bilateral pneumonia -Hypokalemia -Hyponatremia -Hyperglycemia, DM ruled out HOSPITAL COURSE: Patient was admitted and placed on IV antibiotics after blood and urine cultures were obtained. He also received IV fluid for the hyponatremia as well as potassium supplements for hypokalemia. For the hyperglycemia, hemoglobin A1c was done and it came back at 5.4, not indicative of diabetes. Due to the patient's age and the severe infection, HIV test was done after consent was obtained and it came back negative. Subsequently, the patient improved clinically and he was then deemed stable for discharge on additional oral antibiotic. Of note, the blood cultures came back negative for any growth, however the sputum culture came back positive for Yuliya albicans, which is likely indicative of contamination. Disposition: DC-01 TO HOME OR SELFCARE Time spent for discharge: 30 MINUTES Core Measure Documentation - Palliative Care Palliative Care/ Comfort Measures: Not Applicable - Core Measures Any of the following diagnoses?: none Exam - Constitutional Vitals: Temp Pulse Resp BP Pulse Ox 99.8 F H 101 H 18 122/78 90 09/28/18 13:15 09/28/18 13:15 09/28/18 13:15 09/28/18 13:15 09/28/18 13:15 General appearance: Present: no acute distress, well-nourished - EENT Eyes: Present: PERRL, EOM intact ENT: hearing intact, clear oral mucosa - Neck Neck: Present: supple, normal ROM - Respiratory Respiratory effort: normal Respiratory: bilateral: CTA - Cardiovascular Rhythm: regular Heart Sounds: Present: S1 & S2. Absent: rub, click - Extremities Extremities: No edema - Abdominal General gastrointestinal: Present: soft, non-tender, non-distended, normal bowel sounds - Musculoskeletal Musculoskeletal: gait normal, strength equal bilaterally - Psychiatric Psychiatric: appropriate mood/affect, intact judgment & insight - Neurologic Neurologic: CNII-XII intact, moves all extremities Plan Follow up with: CEDRIC NUNEZ [Primary Care Provider] - 3-5 Days Prescriptions: levoFLOXacin [Levaquin TAB] 750 mg PO QDAY #7 tablet
== END 2018-09-28 15:35 | disposition home or self-care (01) | DRG 871 ==
LOC: ED 13:29 → 3A 18:26
PROVIDERS: ADMIT Internal Medicine; ATTEND Internal Medicine
PROC: 3E0234Z Introduction of Serum, Toxoid and Vaccine into Muscle, Percutaneous Approach (ICD-10-PCS; principal; 2018-09-25)
DX: A41.9 Sepsis, unspecified organism (principal); J18.9 Pneumonia, unspecified organism; E87.1 Hypo-osmolality and hyponatremia; Z23 Encounter for immunization; E87.6 Hypokalemia; R73.9 Hyperglycemia, unspecified
CPT/HCPCS: 36415; 71045; 71275; 80048; 80053; 81001; 82140; 83036; 83735; 83930; 83935; 85025; 85610; 85730; 87040; 87070; 87116; 87205; 87400; 87430; 87806; 90732; 94640; 96365; 96366; 96367; 96372; 96375; 99406; G0378; J0456; J0696; J1170; J1650; J7030; J7042; J7050; Q9967